=== PATIENT | male | born 1970 ===

== ENCOUNTER 2018-08-30 21:12 | Emergency (ER) | payer MEDICAID, OTHER ==
[2018-08-30 21:16] VITALS: TEMP 98; O2SAT 94
--- NOTE | 2018-08-30 21:41 | ED PDOC ---
HPI: Psych/Substance Abuse Time Seen by Provider: 08/30/18 21:18 Chief Complaint (Nursing): Substance Abuse Chief Complaint (Provider): substance abuse History Per: Patient, EMS Additional Complaint(s): 48 y/o male brought in by EMS for evaluation of possible substance abuse. Patient awake but drowsy upon arrival, admits to snorting 4 bags of heroin tonight. Denies acute medical or psychiatric complaints. Past Medical History Reviewed: Historical Data, Nursing Documentation, Vital Signs Vital Signs: Last Vital Signs Temp 98.0 F 08/30/18 21:13 Pulse 124 H 08/30/18 21:13 Resp 16 08/30/18 21:13 BP 153/81 H 08/30/18 21:13 Pulse Ox 94 L 08/30/18 21:13 Primary Care Provider: FAMILY PROVIDER,NO - Medical History PMH: Depression Denies: Diabetes, Hepatitis, HIV, HTN, Chronic Kidney Disease, Seizures, Sexually Transmitted Disease - Family History Family History: States: Unknown Family Hx - Immunization History Hx Tetanus Toxoid Vaccination: No Hx Influenza Vaccination: No Hx Pneumococcal Vaccination: No - Home Medications Home Medications: Ambulatory Orders Medication Instructions Recorded Mirtazapine [Remeron] 30 mg PO HS #30 tab 12/18/17 QUEtiapine [Seroquel] 100 mg PO HS #30 tab 12/18/17 - Allergies Allergies/Adverse Reactions: Allergies Allergy/AdvReac Type Severity Reaction Status Date / Time No Known Allergies Allergy Verified 08/30/18 21:13 Review of Systems ROS Statement: Except As Marked, All Systems Reviewed And Found Negative Physical Exam - Reviewed Nursing Documentation Reviewed: Yes Vital Signs Reviewed: Yes - Physical Exam Appears: Positive for: Well, Non-toxic, No Acute Distress Head Exam: Positive for: ATRAUMATIC, NORMAL INSPECTION, NORMOCEPHALIC Skin: Positive for: Normal Color Eye Exam: Positive for: Normal appearance ENT: Positive for: Normal ENT Inspection Cardiovascular/Chest: Positive for: Regular Rate, Rhythm Respiratory: Positive for: Normal Breath Sounds Back: Positive for: Normal Inspection Extremity: Positive for: Normal ROM Neurological/Psych: Positive for: Awake, Alert, Oriented (x2) - ECG O2 Sat by Pulse Oximetry: 94 - Progress ED Course And Treament: -accucheck -desk monitor 22:30 Patient awake, alert, oriented x3. Ambulating steady gait. States he would like to be discharged. Vitals stable Disposition - Clinical Impression Clinical Impression: Substance abuse - Patient ED Disposition Is Patient to be Admitted: No Counseled Patient/Family Regarding: Studies Performed, Diagnosis, Need For Followup - Disposition Referrals: [facility] [place] [Outside] Disposition: Routine/Home Disposition Time: 22:33 Condition: IMPROVED Instructions: Drug Abuse and Drug Addiction (DC)
[2018-08-30 22:42] VITALS: BP 137/65; PULSE 92; RESP 18
== END 2018-08-30 22:34 | disposition home or self-care (01) ==
LOC: H.ER 21:12
DX: F19.10 Other psychoactive substance abuse, uncomplicated (principal)

== ENCOUNTER 2018-08-31 02:01 | Emergency (ER) | payer OTHER ==
[2018-08-31 03:33] VITALS: RESP 16; O2SAT 98
--- NOTE | 2018-08-31 03:44 | ED PDOC ---
HPI: General Adult Time Seen by Provider: 08/31/18 02:57 Chief Complaint (Nursing): Medical Clearance Chief Complaint (Provider): eval History Per: Patient History/Exam Limitations: no limitations Additional Complaint(s): 48 y/o male presents for evaluation. Patient was seen here earlier tonight for substance abuse, requested to be discharged and states he was denied from the [facility] after leaving here because it was too late. Patient states he has no where to go. Patient denies acute physical or psychiatric complaints. Past Medical History Reviewed: Historical Data, Nursing Documentation, Vital Signs Vital Signs: Last Vital Signs Temp 98.5 F 08/31/18 03:29 Pulse 83 08/31/18 03:29 Resp 16 08/31/18 03:29 BP 171/84 H 08/31/18 03:29 Pulse Ox 98 08/31/18 03:29 Primary Care Provider: FAMILY PROVIDER,NO - Medical History PMH: Depression Denies: Diabetes, Hepatitis, HIV, HTN, Chronic Kidney Disease, Seizures, Sexually Transmitted Disease - Family History Family History: States: Unknown Family Hx - Immunization History Hx Tetanus Toxoid Vaccination: No Hx Influenza Vaccination: No Hx Pneumococcal Vaccination: No - Home Medications Home Medications: Ambulatory Orders Medication Instructions Recorded Mirtazapine [Remeron] 30 mg PO HS #30 tab 12/18/17 QUEtiapine [Seroquel] 100 mg PO HS #30 tab 12/18/17 - Allergies Allergies/Adverse Reactions: Allergies Allergy/AdvReac Type Severity Reaction Status Date / Time No Known Allergies Allergy Verified 08/30/18 21:13 Review of Systems ROS Statement: Except As Marked, All Systems Reviewed And Found Negative Physical Exam - Reviewed Nursing Documentation Reviewed: Yes Vital Signs Reviewed: Yes - Physical Exam Appears: Positive for: Well, Non-toxic, No Acute Distress Head Exam: Positive for: ATRAUMATIC, NORMAL INSPECTION, NORMOCEPHALIC Skin: Positive for: Normal Color Eye Exam: Positive for: Normal appearance ENT: Positive for: Normal ENT Inspection Cardiovascular/Chest: Positive for: Regular Rate, Rhythm Respiratory: Positive for: Normal Breath Sounds Gastrointestinal/Abdominal: Positive for: Normal Exam Back: Positive for: Normal Inspection Extremity: Positive for: Normal ROM Neurological/Psych: Positive for: Awake, Alert, Oriented (x3) - ECG O2 Sat by Pulse Oximetry: 98 Disposition - Clinical Impression Clinical Impression: Malingering - Patient ED Disposition Is Patient to be Admitted: No Counseled Patient/Family Regarding: Diagnosis, Need For Followup - Disposition Disposition: Routine/Home Disposition Time: 03:48 Condition: IMPROVED Instructions: General (DC)
[2018-08-31 06:03] VITALS: BP 140/81; PULSE 80; TEMP 98.1
== END 2018-08-31 06:02 | disposition home or self-care (01) ==
LOC: H.ER 02:01
DX: Z76.5 Malingerer [conscious simulation] (principal); Z86.59 Personal history of other mental and behavioral disorders

== ENCOUNTER 2018-09-09 00:47 | Emergency (ER) | payer OTHER ==
[2018-09-09 01:20] VITALS: O2SAT 98
[2018-09-09 04:37] VITALS: BP 114/74; PULSE 72; RESP 14; TEMP 97.6
--- NOTE | 2018-09-09 04:51 | ED PDOC ---
HPI: Chest Pain Time Seen by Provider: 09/09/18 02:06 Chief Complaint (Nursing): Chest Pain Chief Complaint (Provider): Chest Pain History Per: Patient History/Exam Limitations: no limitations Onset/Duration Of Symptoms: Days (x1) Additional Complaint(s): 48 years old homeless male presents to ER for evaluation of chest pain onset today. Patient reports chest pain was resolved earlier today and now he is requesting to sleep. He offers no physical complaints. PMD: None provided Past Medical History Reviewed: Historical Data, Nursing Documentation, Vital Signs Vital Signs: Last Vital Signs Temp 97.6 F 09/09/18 04:10 Pulse 72 09/09/18 04:10 Resp 14 09/09/18 04:10 BP 114/74 09/09/18 04:10 Pulse Ox 98 09/09/18 04:10 Primary Care Provider: FAMILY PROVIDER,NO - Medical History PMH: Depression Denies: Diabetes, Hepatitis, HIV, HTN, Chronic Kidney Disease, Seizures, Sexually Transmitted Disease - Surgical History Surgical History: No Surg Hx - Family History Family History: States: Unknown Family Hx - Immunization History Hx Tetanus Toxoid Vaccination: No Hx Influenza Vaccination: No Hx Pneumococcal Vaccination: No - Home Medications Home Medications: Ambulatory Orders Medication Instructions Recorded Mirtazapine [Remeron] 30 mg PO HS #30 tab 12/18/17 QUEtiapine [Seroquel] 100 mg PO HS #30 tab 12/18/17 - Allergies Allergies/Adverse Reactions: Allergies Allergy/AdvReac Type Severity Reaction Status Date / Time No Known Allergies Allergy Verified 08/30/18 21:13 Review of Systems ROS Statement: Except As Marked, All Systems Reviewed And Found Negative Cardiovascular: Positive for: Chest Pain (Resolved now) Physical Exam - Reviewed Nursing Documentation Reviewed: Yes Vital Signs Reviewed: Yes - Physical Exam Appears: Positive for: No Acute Distress (Disheveled) Head Exam: Positive for: ATRAUMATIC, NORMOCEPHALIC Neurological/Psych: Positive for: Awake, Alert, Oriented (x3) - ECG O2 Sat by Pulse Oximetry: 98 (RA) Pulse Ox Interpretation: Normal Medical Decision Making Medical Decision Making: Time: 119 Initial impression: resolved chest pain and bed seeking behavior Initial plan: --EKG Scribe Attestation: Documented by Kim Wong acting as a scribe for Rachelle Awad MD. Provider Scribe Attestation: All medical record entries made by the Scribe were at my direction and personally dictated by me. I have reviewed the chart and agree that the record accurately reflects my personal performance of the history, physical exam, medical decision making, and the department course for this patient. I have also personally directed, reviewed, and agree with the discharge instructions and disposition. Disposition - Clinical Impression Clinical Impression: Chest pain - Disposition Referrals: [facility] [place] [Outside] Condition: GOOD Instructions: Chest Pain Forms: [employer] ([employer])
--- NOTE | 2018-09-09 17:32 | CARD ---
APPROVED REPORT Date of service: 09/09/2018 EKG Measurement Heart [id number] <Conclusion> Sinus bradycardia Otherwise normal ECG
== END 2018-09-09 04:20 | disposition home or self-care (01) ==
LOC: H.ER 00:47
DX: R07.9 Chest pain, unspecified (principal); Z59.0 Homelessness; Z86.59 Personal history of other mental and behavioral disorders